=== PATIENT | female | born 1990 | race Caucasian/White ===

== ENCOUNTER 2016-07-23 02:24 | Emergency (ER) | payer MEDICAID ==
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
== END 2016-07-23 02:56 | disposition home or self-care (01) ==
LOC: ER 02:24
DX: S00.81XA Abrasion of other part of head, initial encounter (principal); M54.2 Cervicalgia; Y04.0XXA Assault by unarmed brawl or fight, initial encounter; Y92.009 Unspecified place in unspecified non-institutional (private) residence as the place of occurrence of the external cause
CPT/HCPCS: 99283

== ENCOUNTER 2017-03-18 18:42 | Emergency (ER) | payer MEDICAID ==
[2017-03-18] MEDS ORDERED: 0.9 % SODIUM CHLORIDE 1,000 ML BAG IV ONE (19:30)
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
[2017-03-18 19:59] LABS: URINE APPEARANCE CLEAR; URINE BILIRUBIN NEGATIVE (NEGATIVE); URINE BLOOD NEGATIVE (NEGATIVE); URINE COLOR YELLOW; URINE GLUCOSE (UA) NEGATIVE (NEGATIVE); URINE KETONE NEGATIVE (NEGATIVE); URINE LEUKOCYTE ESTERASE NEGATIVE (NEGATIVE); URINE NITRITE NEGATIVE (NEGATIVE); URINE PROTEIN NEGATIVE (NEGATIVE); URINE UROBILINOGEN 0.2 E.U./dL (0.20 - 1.00)
[2017-03-18 20:16] LABS: AMPHETAMINE SCREEN URINE NOT DETECTED; BARBITURATE SCREEN URINE NOT DETECTED; BENZODIAZEPINE SCREEN URINE NOT DETECTED; METHADONE SCREEN URINE NOT DETECTED; OPIATE SCREEN URINE NOT DETECTED; THC SCREEN URINE NOT DETECTED; TRICYCLIC ANTIDEPRESSANT SCRN NOT DETECTED
[2017-03-18 20:17] LABS: HCG,QUALITATIVE URINE NEGATIVE (NEGATIVE)
[2017-03-18 20:17] LABS: COCAINE SCREEN URINE DETECTED; METHAMPHETAMINE SCREEN NOT DETECTED; OXYCODONE SCREEN URINE NOT DETECTED; PHENCYCLIDINE SCREEN URINE NOT DETECTED; PROPOXYPHENE SCREEN URINE NOT DETECTED
[2017-03-18 20:18] LABS: BASO % 0.3 % (0-6); EOS % 2.5 % (0-6); GRAN % 70.2 % (47-80); HEMATOCRIT 45.2 % (35.0-47.0); HEMOGLOBIN 14.8 gm/dl (11.6-16.0); LYMPH % 19.7 % (16-45); MEAN CELL VOLUME 100.2 fl (81-97); MEAN CORPUSCULAR HEMOGLOBIN 32.8 pg (27-33); MEAN CORPUSCULAR HGB CONC 32.7 g/dl (32-36); MEAN PLATELET VOLUME 9.3 fl (7.4-10.4); MONO % 7.3 % (0-9); PLATELET COUNT 263 K/uL (130-400); RED BLOOD COUNT 4.51 M/uL (3.80-5.40); RED CELL DISTRIBUTION WIDTH 12.4 % (11.5-14.5); WHITE BLOOD COUNT W/O DIFF 9.2 K/uL (4.2-12.2)
[2017-03-18 20:19] LABS: ALB/GLOB RATIO 1.7 (1.1-1.8); ALBUMIN 4.7 g/dL (4.0-5.0); ALKALINE PHOSPHATASE 57 U/L (35-104); ALT/SGPT 11 U/L (<33); AST/SGOT 24 U/L (10.0-35.0); BLOOD UREA NITROGEN 13 mg/dL (6-20); CKMB 4.7 ng/mL (<3.77); CREATINE PHOSPHOKINASE 164 U/L (26-192); CREATININE 0.7 mg/dL (0.5-0.9); EST GLOMERULAR FILTRATION RATE > 60 mL/min; GLUCOSE,RANDOM 82 mg/dL (74-109); TOTAL PROTEIN 7.5 g/dL (6.6-8.7)
[2017-03-18 20:23] LABS: ACETAMINOPHEN < 5.0 ug/mL (10.0-30.0); TROPONIN I < 0.30 ng/mL (0.00-0.300)
[2017-03-18 20:24] LABS: SALICYLATE < 0.3 mg/dL (2.8-20)
--- NOTE | 2017-03-20 08:30 | RADIOLOGY REPORT ---
EXAM: CHEST, TWO VIEWS HISTORY: PATIENT HAS A HISTORY OF SEIZURES. TECHNIQUE: Two views of the chest are provided along with the comparison study dated 09/12/15. FINDINGS: The cardiomediastinal silhouette is within normal limits for size and contour. The justin appear unremarkable. There is no radiographic evidence of a focal infiltrate or pleural effusion. No pneumothorax is noted. IMPRESSION: NO RADIOGRAPHIC EVIDENCE OF AN ACUTE INTRATHORACIC PROCESS. JOB NUMBER: [id number] [facility] [place]
--- NOTE | 2017-03-20 08:33 | CT SCAN REPORT ---
EXAM: CT SCAN OF THE HEAD HISTORY: PATIENT HAS A HISTORY OF SEIZURES. TECHNIQUE: Serial axial CT scan of the head was performed at 2.5 mm intervals from the base of the skull to the apex without the use of intravenous contrast. Comparison: CT scan of the head dated 02/11/14 is provided. FINDINGS: The ventricles, cisterns, and sulci appear within normal limits for size, shape, and attenuation. There is no mass or mass effect. The medrano and white differentiation appear within normal limits. There is no CT evidence of intra or extraaxial fluid collection to suggest bleeding. Bone windows of the skull demonstrate no CT evidence of a fracture or dislocation of the skull. The paranasal sinuses are unremarkable. IMPRESSION: STABLE CT APPEARANCE OF THE BRAIN WITH RESPECT TO THE PRIOR EXAMINATION. JOB NUMBER: [id number] [facility]
== END 2017-03-18 21:25 | disposition home or self-care (01) ==
LOC: ER 18:42
DX: G40.909 Epilepsy, unspecified, not intractable, without status epilepticus (principal); R07.9 Chest pain, unspecified; F14.10 Cocaine abuse, uncomplicated; Z79.899 Other long term (current) drug therapy
CPT/HCPCS: 99284 ×2; 82550; 83605; 82140; 85025; 82553; 84484; 80053; 81003; 81025; 80305; 71020; 70450; G0480 ×3; 80320; 80329; J7030